=== PATIENT | female | born 1970 | race Caucasian/White ===

== ENCOUNTER 2017-08-15 21:17 | Emergency (ER) | payer OTHER, BC ==
--- NOTE | 2017-08-15 22:01 | ER Document Report ---
HPI - HPI Patient complains to provider of: Nasal injury Onset: Just prior to arrival Onset/Duration: Sudden Quality of pain: Achy Pain Level: 1 Context: Patient states she was walking carrying a load, tripped and fell hitting her nose on a wire rack. Patient denies any loss of consciousness. Patient does complain of laceration to the bridge of her nose. Patient states her tetanus immunization is currently up-to-date. Associated Symptoms: Other - Nose injury Exacerbated by: Denies Relieved by: Denies Similar symptoms previously: No Recently seen / treated by doctor: No - ROS ROS below otherwise negative: Yes Systems Reviewed and Negative: Yes All other systems reviewed and negative - CONSTITUTIONAL Constitutional: DENIES: Fever, Chills - EENT EENT: DENIES: Sore Throat, Ear Pain, Eye problems Notes: Laceration to nose - GASTROINTESTINAL Gastrointestinal: DENIES: Nausea, Patient vomiting - MUSCULOSKELETAL Musculoskeletal: DENIES: Back Pain, Neck Pain - DERM Skin Color: Normal Skin Problems: Laceration Past Medical History - General Information source: Patient - Social History Smoking Status: Never Smoker Chew tobacco use (# tins/day): No Frequency of alcohol use: Rare Drug Abuse: None 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 IN LAST 30 DAYS: No - HEENT HEENT: Normocephalic, PERRLA. negative: Pharyngeal Exudate, Pharyngeal Tenderness, Pharyngeal Erythema, Tympanic Membrane Red Notes: Patient with laceration across bridge of nose. No obvious deformity. No other facial injury. Extraocular movements intact. No septal hematoma. - NECK Neck: Normal Inspection, Supple - RESPIRATORY Respiratory: No Respiratory Distress O2 Sat by Pulse Oximetry: 99 - MUSCULOSKELETAL/EXTREMETIES Musculoskeletal/Extremeties: JAYCOB RIVAS - NEURO Level of Consciousness: Awake, Alert, Appropriate Motor/Sensory: No Motor Deficit - DERM Integumentary: Warm, Dry, Laceration - 1 cm lac to bridge of nose Course - Re-evaluation Re-evalutation: 08/15/17 No concern for any facial fracture or orbital fracture. Extraocular movements intact. Patient with superficial laceration to bridge of nose. No septal hematoma. No obvious deformity or swelling to the nose. - Vital Signs Vital signs: Temp Pulse Resp BP Pulse Ox 98.2 F 71 18 132/80 H 99 08/15/17 21:18 08/15/17 21:18 08/15/17 21:18 08/15/17 21:18 08/15/17 21:18 Discharge - Discharge Clinical Impression: Laceration of nose Qualifiers: Encounter type: initial encounter Qualified Code(s): S01.21XA - Laceration without foreign body of nose, initial encounter Condition: Stable Disposition: HOME, SELF-CARE Instructions: Acetaminophen, Use of Aqel-Jdd-Zgwdsao Ibuprofen ([facility]), Non- Sutured Laceration ([facility]), Skin Adhesive Closure ([facility]) Additional Instructions: Return immediately for any new or worsening symptoms Followup with your primary care provider, call tomorrow to make a followup appointment Follow-up with plastic surgeon for any cosmetic concerns Forms: Return to Work Referrals: FAITH MONTOYA MD [ACTIVE STAFF] - Follow up as needed
[2017-08-15 22:31] VITALS: BP 128/78
== END 2017-08-15 22:30 | disposition home or self-care (01) ==
LOC: ER 21:17
DX: S01.21XA Laceration without foreign body of nose, initial encounter (principal); W19.XXXA Unspecified fall, initial encounter
CPT/HCPCS: 99282

== ENCOUNTER 2018-06-20 13:43 | Emergency (ER) | payer BC, OTHER ==
[2018-06-20] MEDS ORDERED: ONDANSETRON HCL INJ/PF 4 MG/2 ML SDV IV ONE ×2 (13:58→18:22)
[2018-06-20] MEDS ORDERED: NORMAL SALINE 1000 ML 1,000 ML IV ONE ×3 (13:58→15:55)
--- NOTE | 2018-06-20 14:07 | ER Document Report ---
ED Medical Screen (RME) - General Chief Complaint: Chest Pain > 30 Stated Complaint: CHEST PAIN Time Seen by Provider: 06/20/18 13:57 Notes: 47 years old female with episode of nausea vomiting diarrhea, felt better subsequently today with to work started having nausea again general body aches and pain therefore presented to the ED. Denies any runny nose fever chills no other constitutional symptoms. Examination by and large benign. TRAVEL OUTSIDE OF THE [place] IN LAST 30 DAYS: No - Related Data Allergies/Adverse Reactions: No Known Allergies Allergy (Unverified 06/20/18 13:45) Past Medical History Renal/ Medical History: Denies: Hx Peritoneal Dialysis - Immunizations Hx Diphtheria, Pertussis, Tetanus Vaccination: Yes Physical Exam - Vital signs Vitals: Temp Pulse Resp BP Pulse Ox 99.0 F 85 16 143/69 H 100 06/20/18 13:54 06/20/18 13:54 06/20/18 13:54 06/20/18 13:54 06/20/18 13:54 Course - Vital Signs Vital signs: Temp Pulse Resp BP Pulse Ox 99.0 F 85 16 143/69 H 100 06/20/18 13:54 06/20/18 13:54 06/20/18 13:54 06/20/18 13:54 06/20/18 13:54
--- NOTE | 2018-06-20 14:35 | ER Document Report ---
ED General - General Chief Complaint: Chest Pain > 30 Stated Complaint: CHEST PAIN Time Seen by Provider: 06/20/18 13:57 Mode of Arrival: Ambulatory Information source: Patient Notes: This is a 47-year-old female with no medical problems who presents to the emergency room with 3-4 days of crampy abdominal pain, diarrhea, nausea and vomiting. Patient reports diffuse muscle aches in the shoulders and legs and tingling in the hands. Abdominal cramping was worse today so she came to the emergency room. She does report that her had similar symptoms last week. She denies fever, headache, neck stiffness. Patient states that the chest pain is been more of an ache in the shoulders and back. At this time, she denies any shortness of breath. She is a family history significant for hypertension (mother). She does not know her father's medical history and she is an only child. She is not allergic to any medicines and she is been taking spdb-zgv-cxcnwxh medicines (Pepto-Bismol, Lamotidine). TRAVEL OUTSIDE OF THE [place] IN LAST 30 DAYS: No - HPI Onset: Last week Onset/Duration: Gradual Quality of pain: Cramping, Dull Severity: Mild Pain Level: 1 Associated symptoms: Diarrhea, Nausea, Vomiting, Other - Sinus congestion. denies: Fever Exacerbated by: Denies Relieved by: Denies Similar symptoms previously: No Recently seen / treated by doctor: No - Related Data Allergies/Adverse Reactions: No Known Allergies Allergy (Unverified 06/20/18 13:45) Past Medical History - General Information source: Patient - Social History Smoking Status: Never Smoker Cigarette use (# per day): No Chew tobacco use (# tins/day): No Frequency of alcohol use: None Drug Abuse: None Lives with: Family Family History: Reviewed & Not Pertinent Patient has suicidal ideation: No Patient has homicidal ideation: No - Medical History Medical History: Negative Renal/ Medical History: Denies: Hx Peritoneal Dialysis Surgical Hx: Negative - Immunizations Hx Diphtheria, Pertussis, Tetanus Vaccination: Yes Review of Systems - Review of Systems Constitutional: denies: Chills, Fever EENT: Nose congestion, Sinus pressure Cardiovascular: denies: Chest pain, Palpitations, Heart racing Respiratory: Cough, Short of breath Gastrointestinal: Abdominal pain, Diarrhea, Nausea, Vomiting, Poor appetite. denies: Blood in vomit Genitourinary: Other - Doc urine. denies: Burning, Dysuria, Discharge Female Genitourinary: No symptoms reported Musculoskeletal: Muscle stiffness Skin: No symptoms reported Hematologic/Lymphatic: No symptoms reported Neurological/Psychological: No symptoms reported Physical Exam - Vital signs Vitals: Temp Pulse Resp BP Pulse Ox 99.0 F 85 16 143/69 H 100 06/20/18 13:54 06/20/18 13:54 06/20/18 13:54 06/20/18 13:54 06/20/18 13:54 Notes: Physical exam: GENERAL: Graves is alert and oriented x3 and in no acute distress HEAD: Atraumatic, normocephalic. EYES: Pupils equal round and reactive to light, extraocular movements intact, sclera anicteric, conjunctiva are normal. ENT: TMs normal, nares patent, oropharynx clear without exudates. Moist mucous membranes. NECK: Normal range of motion, supple without obvious mass or JVD. LUNGS: Breath sounds clear to auscultation bilaterally and equal. No wheezes rales or rhonchi. HEART: Regular rate and rhythm without murmurs, rubs or gallops. ABDOMEN: Soft, normoactive bowel sounds. No tenderness to palpation. No guarding, no rebound. No masses appreciated. EXTREMITIES: Normal range of motion, no pitting or edema. No clubbing or cyanosis. NEUROLOGICAL: Cranial nerves II through XII grossly intact. Normal speech, moving all extremities. PSYCH: Normal mood, normal affect. SKIN: Warm, Dry, normal turgor, no rashes or lesions noted. Course - Re-evaluation Re-evalutation: Note: This is a woman that is been having pain for the past 4-5 days. She does not have fever. She does have a white count of 20,000. Her labs do show pancreatitis with elevated AST and ALT. The ultrasound does show some gallstones with a prominent common bile duct concerning for gallstone pancreatitis. Patient's pain is been controlled with IV morphine. She is getting IV antiemetics and IV fluids. 06/20/18 19:31 Patient treated with IV fluids, IV antiemetics, IV morphine. IV Zofran. Ultrasound, CT and labs reviewed. [facility] contacted for transfer. 06/20/18 20:31 I discussed case with Dr. Grier (GI at [facility]) who agrees to see the patient in consult. I discussed the case with Dr. Oviedo at [facility] who has agreed to accept patient for transfer. 06/20/18 22:55 Awaiting bed. Patient stable. Exam unchanged. 06/20/18 22:58 - Vital Signs Vital signs: Temp Pulse Resp BP Pulse Ox 97.5 F 85 18 143/69 H 100 06/20/18 17:59 06/20/18 13:54 06/20/18 15:36 06/20/18 13:54 06/20/18 13:54 - Laboratory Result Diagrams: 06/20/18 15:05 06/20/18 15:05 Laboratory results interpreted by me: 06/20/18 06/20/18 06/20/18 14:08 15:05 15:05 WBC 20.1 H Seg Neuts % (Manual) 84 H Lymphocytes % (Manual) 7 L Abs Neuts (Manual) 16.9 H Absolute Eos (Manual) 0.8 H Glucose 134 H AST 257 H ALT 338 H Alkaline Phosphatase 238 H Lipase 1820.3 H Urine Protein 30 H Urine Blood SMALL H Urine Urobilinogen 4.0 H Ur Leukocyte Esterase TRACE H - Diagnostic Test Radiology reviewed: Image reviewed, Reports reviewed - Ultra sound shows gallstones. There is no thickened gallbladder wall or pericholecystic fluid. The common bile duct is more dilated than what would be expected for her age. CT of the abdomen shows no acute intra-abdominal process - EKG Interpretation by Me Rate: Normal Rhythm: NSR - EKG shows normal sinus rhythm with a ventricular rate of 72, nonspecific ST changes, no acute ST elevations. Critical Care Note - Critical Care Note Total time excluding time spent on procedures (mins): 60 Discharge - Discharge Clinical Impression: Gallstone pancreatitis Condition: Stable Disposition: Critical Access Hospital Referrals: TAMMIE ALDRICH PA-C [Primary Care Provider] - Follow up as needed
[2018-06-20 15:06] LABS: AMORPHOUS SEDIMENT,URINE 1+ /HPF; APPEARANCE,URINE TURBID; BILIRUBIN,URINE NEGATIVE (NEGATIVE); COLOR,URINE YELLOW; GLUCOSE, URINE NEGATIVE (NEGATIVE); KETONES,URINE NEGATIVE (NEGATIVE); LEUKOCYTE ESTERASE,URINE TRACE (NEGATIVE); NITRITE,URINE NEGATIVE (NEGATIVE); PROTEIN,URINE 30 mg/dL (NEGATIVE); URINE SPECIFIC GRAVITY 1.025
[2018-06-20 15:25] LABS: HEMATOCRIT 44.1 % (36.0-47.0); HEMOGLOBIN 15.3 g/dL (12.0-15.5); MEAN CORPUSCULAR HGB CONC 34.8 g/dL (32.0-36.0); MEAN CORPUSCULAR VOLUME 86 fl (80-97); PLATELET COUNT 269 10^3/uL (150-450); RED BLOOD COUNT 5.11 10^6/uL (3.72-5.28); RED CELL DISTRIBUTION WIDTH 12.6 % (11.5-14.0); WHITE BLOOD COUNT 20.1 10^3/uL (4.0-10.5)
--- NOTE | 2018-06-20 15:41 | RADIOLOGY REPORT (SQ) ---
EXAM DESCRIPTION: ACUTE ABDOMEN SERIES COMPLETED DATE/TIME: 06/20/2018 3:16 pm REASON FOR STUDY: Abdominal pain COMPARISON: None. NUMBER OF VIEWS: Three views. TECHNIQUE: PA chest, supine abdomen and upright/decubitus abdomen radiographic images acquired. LIMITATIONS: None. FINDINGS: CHEST: Lungs clear of infiltrates. FREE AIR: None. No abnormal gas collections. BOWEL GAS PATTERN: Few scattered small bowel loops with air fluid levels. No distended large or small bowel loops. CALCIFICATIONS: No suspicious calcifications. HARDWARE: None in the abdomen. SOFT TISSUES: No gross mass or suggestion of organomegaly. BONES: No acute fracture. No worrisome bone lesions. OTHER: No other significant finding. IMPRESSION: NONSPECIFIC BOWEL GAS PATTERN WITHOUT EVIDENCE FOR OBSTRUCTION. TECHNICAL DOCUMENTATION: JOB ID: [id number] [employer]- All Rights Reserved Reading location - IP/workstation name: [email or web address]
[2018-06-20 15:43] LABS: ALANINE AMINOTRANSFERASE 338 U/L (9-52); ALBUMIN 4.4 g/dL (3.5-5.0); ALKALINE PHOSPHATASE 238 U/L (38-126); ANION GAP 14 (5-19); ASPARTATE AMINO TRANSFERASE 257 U/L (14-36); BILIRUBIN,DIRECT 0.4 mg/dL (0.0-0.4); BILIRUBIN,TOTAL 0.7 mg/dL (0.2-1.3); BLOOD UREA NITROGEN 11 mg/dL (7-20); CALCIUM 9.6 mg/dL (8.4-10.2); CARBON DIOXIDE 24 mmol/L (22-30); CHLORIDE 105 mmol/L (98-107); CREATINE KINASE 48 U/L (30-135); GLUCOSE 134 mg/dL (75-110); LIPASE 1820.3 U/L (23-300); SODIUM 142.5 mmol/L (137-145); TOTAL PROTEIN 7.5 g/dL (6.3-8.2)
[2018-06-20 15:52] LABS: ABSOLUTE LYMPHOCYTES# (MANUAL) 1.4 10^3/uL (0.5-4.7); ABSOLUTE NEUTROPHILS# (MANUAL) 16.9 10^3/uL (1.7-8.2); BASOPHILS % (MANUAL) 0 % (0-2); EOSINOPHILS % (MANUAL) 4 % (0-6); LYMPHOCYTES % (MANUAL) 7 % (13-45); MONOCYTES % (MANUAL) 5 % (3-13); SEGMENTED NEUTROPHILS % (MAN) 84 % (42-78); TOTAL CELLS COUNTED 100
[2018-06-20 15:53] LABS: PLATELET COMMENT ADEQUATE; TOXIC GRANULATION SLIGHT
[2018-06-20 15:54] LABS: CREATINE KINASE MB 1.14 ng/mL (<4.55)
[2018-06-20 15:56] LABS: TROPONIN I < 0.012 ng/mL
[2018-06-20 16:26] LABS: A TYPE INFLUENZA AG NEGATIVE (NEGATIVE); B INFLUENZA AG NEGATIVE (NEGATIVE)
--- NOTE | 2018-06-20 17:51 | RADIOLOGY REPORT (SQ) ---
EXAM DESCRIPTION: CT ABD/PELVIS WITH IV ONLY COMPLETED DATE/TIME: 06/20/2018 5:38 pm REASON FOR STUDY: abd pain COMPARISON: None. TECHNIQUE: CT scan of the abdomen and pelvis performed using helical scanning technique with dynamic intravenous contrast injection. No oral contrast. Images reviewed with lung, soft tissue, and bone windows. Reconstructed coronal and sagittal MPR images reviewed. Delayed images for evaluation of the urinary system also acquired. All images stored on PACS. All CT scanners at this facility use dose modulation, iterative reconstruction, and/or weight based d osing when appropriate to reduce radiation dose to as low as reasonably achievable (ALARA). [facility]: Dose Right [facility]: CareDose [facility]: Dose Right [facility]: Teradose 4D [facility]: [employer] CONTRAST TYPE AND DOSE: contrast/concentration: Isovue 350.00 mg/ml; Total Contrast Delivered: 90.0 ml; Total Saline Delivered: 38.1 ml RENAL FUNCTION: BUN 11 creatinine 0.55 RADIATION DOSE: CT Rad equipment meets quality standard of care and radiation dose reduction techniq ues were employed. CTDIvol: 10.9 - 16.0 mGy. DLP: 1421 mGy-cm.. LIMITATIONS: None. FINDINGS: LOWER CHEST: No significant findings. No nodules or infiltrates. LIVER: Normal size. No masses. No dilated ducts. SPLEEN: Normal size. No focal lesions. PANCREAS: No masses. No significant calcifications. No adjacent inflammation or peripancreatic fluid collections. Pancreatic duct not dilated. GALLBLADDER: No identified stones by CT criteria. No inflammatory changes to suggest cholecystitis. ADRENAL GLANDS: No significant masses or asymmetry. RIGHT KIDNEY AND URETER: No solid masses. No significant calcifications. No hydronephrosis or hyd roureter. LEFT KIDNEY AND URETER: No solid masses. No significant calcifications. No hydronephrosis or hydr oureter. AORTA AND VESSELS: No aneurysm. No dissection. Renal arteries, SMA, celiac without stenosis. RETROPERITONEUM: No retroperitoneal adenopathy, hemorrhage or masses. BOWEL AND PERITONEAL CAVITY: No masses or inflammatory changes. No free fluid or peritoneal masses. APPENDIX: Normal. PELVIS: No mass. No free fluid. Normal bladder. ABDOMINAL WALL: No masses. No hernias. BONES: No significant or acute findings. OTHER: No other significant finding. IMPRESSION: NO SIGNIFICANT OR ACUTE FINDING IN THE ABDOMEN OR PELVIS ON CT SCAN WITH IV CONTRAST. TECHNICAL DOCUMENTATION: JOB ID: [id number] Quality ID # [id number]: Final reports with documentation of one or more dose reduction techniques (e.g., Au tomated exposure control, adjustment of the mA and/or kV according to patient size, use of iterative reconstruction technique) 2010 [employer]- All Rights Reserved Reading location - IP/workstation name: [email or web address]
[2018-06-20] MEDS ORDERED: MORPHINE SULFATE 10 MG/ML INJ IV ONE (18:21)
--- NOTE | 2018-06-20 19:03 | RADIOLOGY REPORT (SQ) ---
EXAM DESCRIPTION: U/S ABDOMEN LIMITED W/O DOP COMPLETED DATE/TIME: 06/20/2018 6:40 pm REASON FOR STUDY: elevated LFTs COMPARISON: None. TECHNIQUE: Dynamic and static grayscale images acquired of the abdomen and recorded on PACS. Additio nal selected color Doppler and spectral images recorded. LIMITATIONS: None. FINDINGS: PANCREAS: Poorly seen. LIVER: No masses. Increased echogenicity. LIVER VASCULATURE: Normal directional flow of the main portal vein and hepatic veins. GALLBLADDER: Stone is present in the gallbladder fundus. There is no wall thickening or pericholecys tic fluid. ULTRASOUND-DETECTED CAMPA'S SIGN: Negative. INTRAHEPATIC DUCTS AND COMMON DUCT: Common bile duct is prominent at 7.6 mm. INFERIOR VENA CAVA: Not imaged. AORTA: No aneurysm. RIGHT KIDNEY: Normal size, 9.5 cm. Normal echogenicity. No solid or suspicious masses. No hydronephr osis. No calcifications. PERITONEAL AND RIGHT PLEURAL SPACE: No ascites or effusions. OTHER: No other significant findings. IMPRESSION: Cholelithiasis without acute cholecystitis. Prominent common bile duct. Correlate for biliary obstruction. TECHNICAL DOCUMENTATION: JOB ID: [id number] [employer]- All Rights Reserved Reading location - IP/workstation name: [email or web address]
--- NOTE | 2018-06-20 19:23 | EKG REPORT ---
SEVERITY:- ABNORMAL ECG - SINUS RHYTHM NONSPECIFIC T ABNORMALITIES, INFERIOR LEADS : Confirmed by: Gabriel Hammer MD 20-Jun-2018 19:23:06
[2018-06-20] MEDS ORDERED: PIPERACILLIN/TAZOBACTAM 3.375 GM VIAL IV ONE (19:31)
[2018-06-20] MEDS: MORPHINE SULFATE 10 MG/ML INJ IV PRN (21:15)
[2018-06-20] MEDS: PIPERACILLIN/TAZOBACTAM 3.375 GM VIAL IV SCH (21:58)
[2018-06-20] MEDS: ONDANSETRON HCL INJ/PF 4 MG/2 ML SDV IV PRN (22:38)
[2018-06-20] MEDS ORDERED: DEXTROSE 5%-1/2 NORMAL SALINE 1,000 ML IV ONE (22:54)
[2018-06-21] MEDS: MORPHINE SULFATE 10 MG/ML INJ IV PRN ×3 (00:56→10:54)
[2018-06-21] MEDS: PIPERACILLIN/TAZOBACTAM 3.375 GM VIAL IV SCH ×4 (01:11→09:31)
[2018-06-21] MEDS: ONDANSETRON HCL INJ/PF 4 MG/2 ML SDV IV PRN ×2 (06:04→10:53)
[2018-06-21 11:03] LABS: ABSOLUTE BASOPHILS # (AUTO) 0.1 10^3/uL (0.0-0.2); ABSOLUTE EOSINOPHILS # (AUTO) 3.2 10^3/uL (0.0-0.6); ABSOLUTE LYMPHOCYTES (AUTO) 2.5 10^3/uL (0.5-4.7); ABSOLUTE MONOCYTES (AUTO) 0.8 10^3/uL (0.1-1.4); ABSOLUTE NEUT (AUTO) 12.1 10^3/uL (1.7-8.2); BASOPHILS % (AUTO) 0.3 % (0-2); EOSINOPHILS % (AUTO) 17.1 % (0-6); HEMATOCRIT 37.1 % (36.0-47.0); LYMPHOCYTES % (AUTO) 13.6 % (13-45); MEAN CORPUSCULAR HEMOGLOBIN 30.1 pg (27.0-33.4); MEAN CORPUSCULAR HGB CONC 34.5 g/dL (32.0-36.0); MEAN CORPUSCULAR VOLUME 87 fl (80-97); MONOCYTES % (AUTO) 4.4 % (3-13); PLATELET COUNT 214 10^3/uL (150-450); RED BLOOD COUNT 4.25 10^6/uL (3.72-5.28); RED CELL DISTRIBUTION WIDTH 12.5 % (11.5-14.0); SEGMENTED NEUTROPHILS % (AUTO) 64.6 % (42-78); TOTAL CELLS COUNTED % (AUTO) 100 %; WHITE BLOOD COUNT 18.7 10^3/uL (4.0-10.5)
[2018-06-21 11:06] LABS: HEMOGLOBIN 12.8 g/dL (12.0-15.5)
[2018-06-21 11:12] LABS: ALANINE AMINOTRANSFERASE 263 U/L (9-52); ALBUMIN 3.2 g/dL (3.5-5.0); ALKALINE PHOSPHATASE 190 U/L (38-126); ANION GAP 8 (5-19); ASPARTATE AMINO TRANSFERASE 99 U/L (14-36); BILIRUBIN,DIRECT 0.3 mg/dL (0.0-0.4); BILIRUBIN,TOTAL 0.8 mg/dL (0.2-1.3); BLOOD UREA NITROGEN 6 mg/dL (7-20); CALCIUM 7.8 mg/dL (8.4-10.2); CARBON DIOXIDE 24 mmol/L (22-30); CHLORIDE 109 mmol/L (98-107); GLUCOSE 88 mg/dL (75-110); POTASSIUM 3.2 mmol/L (3.6-5.0); SODIUM 141.2 mmol/L (137-145); TOTAL PROTEIN 5.4 g/dL (6.3-8.2)
--- NOTE | 2018-06-21 11:28 | ER Document Report ---
Doctor's Note Notes: 06/21/18 11:27 Have reevaluated this patient prior to transport. She is being transported for gallstone pancreatitis. We will plan for this patient to undergo transport, she is currently hemodynamically stable, does have low level pain but appears to be generally controlled. Has received antibiotics, did repeat chemistry and count which demonstrate slight hypokalemia as well as a persistent leukocytosis believe she is best served at a center with ERCP capability.
[2018-06-21 12:27] VITALS: BP 129/87
== END 2018-06-21 12:12 | disposition short-term general hospital (02) ==
LOC: ER 13:43
DX: K85.10 Biliary acute pancreatitis without necrosis or infection (principal); K80.20 Calculus of gallbladder without cholecystitis without obstruction; E87.6 Hypokalemia; D72.829 Elevated white blood cell count, unspecified; R11.2 Nausea with vomiting, unspecified; R10.9 Unspecified abdominal pain; R19.7 Diarrhea, unspecified; R09.81 Nasal congestion; M79.18 Myalgia, other site; R05 Cough; R06.02 Shortness of breath; R50.9 Fever, unspecified
CPT/HCPCS: 93005; 96376; 99291; 96361; 96375; 96365; 96366; 36415; 82553; 82550; 84702; 83690; 85025; 86308; 80053; 81001; 84484; 87804; 74022; 76705; 74177; 93010; J2270 ×2; J2405 ×2; J7030; J2543 ×2